=== PATIENT | female | born 1995 | race African-American/Black ===

== ENCOUNTER 2024-01-25 15:42 | Inpatient (IN) | payer SELFPAY ==
[~2024-01-25] VITALS: Ht 160 cm; Wt 81.7 kg
[2024-01-25] MEDS ORDERED: BIRTH CONTROL (16:12)
[2024-01-25] MEDS ORDERED: SODIUM CHLORIDE 0.9% 1000ML 1,000 ML ONE ×2 (16:26→17:42)
[2024-01-25] MEDS ORDERED: LORAZEPAM INJ 2 MG/ML VIAL ONE (16:27)
[2024-01-25] MEDS ORDERED: FAMOTIDINE 20 MG/2 ML VIAL IV ONE (16:27)
[2024-01-25] MEDS: SODIUM CHLORIDE 0.9% 1000ML 1,000 ML IV ONE (16:34)
[2024-01-25] MEDS: FAMOTIDINE 20 MG/2 ML VIAL IV STA (16:34)
[2024-01-25] MEDS: LORAZEPAM INJ 2 MG/ML VIAL IV ONE (16:35)
[2024-01-25] MEDS ORDERED: ACETAMINOPHEN 325 MG TAB PO PRN (17:45)
[2024-01-25] MEDS ORDERED: ONDANSETRON HCL INJ 2MG/ML 2ML 2 MG/ML VIAL IV PRN (17:45)
[2024-01-25] MEDS: SODIUM CHLORIDE 0.9% 1000ML 1,000 ML IV SCH (17:50)
[2024-01-25 20:00] VITALS: BP 131/101; PULSE 89; RESP 18; TEMP 98.6; O2SAT 100
[2024-01-25] MEDS: ONDANSETRON HCL INJ 2MG/ML 2ML 2 MG/ML VIAL IV PRN (20:45)
[2024-01-25] MEDS: MELATONIN 3 MG TAB PO SCH (20:46)
[2024-01-26] VITALS (13 sets, daily range): BP systolic 124–144; BP diastolic 81–97; PULSE 64–86; RESP 17–20; TEMP 97.9–98.6; O2SAT 98–100
[2024-01-26 07:09] LABS: BASOPHILS # (AUTO) 0.1 (0.0-0.1); BASOPHILS % 1.3 % (0.0-1.0); EOSINOPHILS # (AUTO) 0.3 (0.0-0.4); EOSINOPHILS % 6.8 % (0.0-6.0); HEMATOCRIT 43.5 % (34.2-44.1); HEMOGLOBIN 13.7 g/dL (12.0-16.0); LYMPHOCYTES # (AUTO) 1.4 (1.0-3.2); LYMPHOCYTES % 28.9 % (18.0-39.1); MEAN CORPUSCULAR HEMOGLOBIN 32.3 pg (28-32); MEAN CORPUSCULAR HGB CONC 31.5 g/dL (31-35); MEAN CORPUSCULAR VOLUME 102.6 fL (81-99); MONOCYTES # (AUTO) 0.4 (0.2-0.8); MONOCYTES % 8.3 % (4.4-11.3); NEUTROPHILS # (AUTO) 2.6 (2.1-6.9); NEUTROPHILS % 54.5 % (38.7-80.0); PLATELET COUNT 264 x10e3/uL (140-360); RED BLOOD COUNT 4.24 x10e6/uL (3.6-5.1); RED CELL DISTRIBUTION WIDTH 12.5 % (11.7-14.4)
[2024-01-26 07:27] LABS: ALBUMIN 3.3 g/dL (3.5-5.0); ALBUMIN/GLOBULIN RATIO 1.2 (0.8-2.0); ANION GAP 12.5 mmol/L (8-16); BILIRUBIN,TOTAL 0.9 mg/dL (0.2-1.2); CREATININE, SERUM 0.88 mg/dL (0.57-1.11); POTASSIUM 3.5 mmol/L (3.5-5.1); TOTAL PROTEIN 6.1 g/dL (6.5-8.1)
[2024-01-26 07:55] LABS: MAGNESIUM 1.7 MG/DL (1.3-2.1); PHOSPHORUS 3.8 MG/DL (2.3-4.7)
[2024-01-26] MEDS: LORAZEPAM INJ 2 MG/ML VIAL IV PRN (08:11)
[2024-01-26] MEDS: FOLIC ACID 1 MG TAB PO SCH (08:22)
[2024-01-26] MEDS ORDERED: THIAMINE HCL INJ 100 MG/ML 2ML VIAL IV SCH (09:00)
[2024-01-27 06:01] VITALS: BP 132/93; PULSE 71; RESP 17; TEMP 98.1; O2SAT 100
[2024-01-27 06:35] LABS: ALBUMIN 3.2 g/dL (3.5-5.0); ANION GAP 13.2 mmol/L (8-16); BILIRUBIN,TOTAL 1.2 mg/dL (0.2-1.2); CALCIUM 7.9 mg/dL (8.4-10.2); CREATININE, SERUM 0.83 mg/dL (0.57-1.11); TOTAL PROTEIN 6.3 g/dL (6.5-8.1)
[2024-01-27 06:37] LABS: POTASSIUM 3.2 mmol/L (3.5-5.1)
[2024-01-27 09:49] VITALS: BP 151/87; PULSE 63; RESP 18; TEMP 98.3; O2SAT 99
[2024-01-27 09:58] VITALS: BP 151/87; PULSE 63; RESP 18; TEMP 98.3; O2SAT 99
[2024-01-27 09:59] VITALS: BP 151/87; PULSE 63; RESP 18; TEMP 98.3; O2SAT 99
[2024-01-27 12:51] VITALS: BP 119/84; PULSE 79; RESP 18; TEMP 98; O2SAT 100
[2024-01-27] MEDS: POTASSIUM CHLORIDE 20 MEQ TAB CR PO ONE (13:47)
[2024-01-27 16:44] VITALS: BP 129/95; PULSE 81; RESP 18; TEMP 98.6; O2SAT 100
[2024-01-27] MEDS ORDERED: FOLIC ACID0.4 MG PO (18:51)
[2024-01-27] MEDS ORDERED: THIAMINE H100 MG/1 M IV (18:51)
[2024-01-27] MEDS ORDERED: VITAMIN B-1100 M1 PO (18:57)
[2024-01-27] MEDS ORDERED: VITAMIN B-1100 MG PO (20:45)
== END 2024-01-27 19:00 | disposition home or self-care (01) | DRG 897 ==
LOC: FSED 15:44 → ERHOLD 17:00 → MED/SURG2 18:49
PROVIDERS: ADMIT Internal Medicine; ATTEND Internal Medicine
DX: F10.130 Alcohol abuse with withdrawal, uncomplicated (principal); E66.9 Obesity, unspecified; Z68.31 Body mass index [BMI] 31.0-31.9, adult; Z91.018 Allergy to other foods
CPT/HCPCS: 0223U; 36415; 80053; 80307; 81003; 81025; 83690; 83735; 84100; 85025; 96374; 96375; 99284; J2060; J2405; J3411; J7030

== ENCOUNTER 2024-07-24 21:38 | Emergency (ER) | payer SELFPAY ==
[~2024-07-24] VITALS: Ht 160 cm; Wt 81.6 kg
[~2024-07-24 21:38] MED LIST: BIRTH CONTROL; FOLIC ACID0.4 MG PO; THIAMINE H100 MG/1 M IV; VITAMIN B-1100 M1 PO; VITAMIN B-1100 MG PO
[2024-07-24 22:07] VITALS: RESP 18; TEMP 98.4
[2024-07-24 22:34] LABS: BASOPHILS # (AUTO) 0.1 (0.0-0.1); BASOPHILS % 1.7 % (0.0-1.0); EOSINOPHILS # (AUTO) 0.2 (0.0-0.4); EOSINOPHILS % 3.9 % (0.0-6.0); HEMATOCRIT 37.7 % (34.2-44.1); LYMPHOCYTES # (AUTO) 1.4 (1.0-3.2); LYMPHOCYTES % 33.3 % (18.0-39.1); MEAN CORPUSCULAR HEMOGLOBIN 37.7 pg (28-32); MEAN CORPUSCULAR HGB CONC 34.5 g/dL (31-35); MEAN CORPUSCULAR VOLUME 109.3 fL (81-99); MONOCYTES # (AUTO) 0.3 (0.2-0.8); MONOCYTES % 8.1 % (4.4-11.3); NEUTROPHILS # (AUTO) 2.1 (2.1-6.9); NEUTROPHILS % 52.8 % (38.7-80.0); PLATELET COUNT 89 x10e3/uL (140-360); RED BLOOD COUNT 3.45 x10e6/uL (3.6-5.1); RED CELL DISTRIBUTION WIDTH 13.2 % (11.7-14.4); WHITE BLOOD COUNT 4.06 x10e3/uL (4.8-10.8)
[2024-07-24 22:46] LABS: AMPHETAMINES SCREEN,URINE NEGATIVE (NEGATIVE); BENZODIAZEPINES SCREEN,URINE NEGATIVE (NEGATIVE); BILIRUBIN,URINE 1+ (NEGATIVE); CLARITY,URINE CLOUDY (CLEAR); COLOR,URINE YELLOW (YELLOW); GLUCOSE, URINE NEGATIVE (NEGATIVE); KETONES,URINE 1+ (NEGATIVE); LEUKOCYTE ESTERASE ,URINE NEGATIVE (NEGATIVE); NITRITE,URINE NEGATIVE (NEGATIVE); OPIATES SCREEN,URINE NEGATIVE (NEGATIVE); PH,URINE 5.5 (5 - 7); PHENCYCLIDINE SCREEN,URINE NEGATIVE (NEGATIVE); PREGNANCY TEST, URINE NEGATIVE (NEGATIVE); PROTEIN,URINE DIPSTICK TRACE (NEGATIVE); URINE UROBILINOGEN 0.2 mg/dL (0.2 - 1)
[2024-07-24 22:47] LABS: CANNABINOIDS SCREEN,URINE NEGATIVE (NEGATIVE); METHADONE SCREEN, URINE NEGATIVE (NEGATIVE)
[2024-07-24 22:51] LABS: BACTERIA,URINE MANY /HPF; EPITHELIAL CELLS,URINE MODERATE /LPF; YEAST,URINE FEW
[2024-07-24 22:52] LABS: ALANINE AMINOTRANSFERASE 168 IU/L (0-55); ALBUMIN/GLOBULIN RATIO 1.1 (0.8-2.0); ALKALINE PHOSPHATASE 69 IU/L (40-150); BILIRUBIN,TOTAL 1.3 mg/dL (0.2-1.2); BLOOD UREA NITROGEN < 5 mg/dL (7-26); BUN/CREATININE RATIO 5 (6-25); CALCIUM 9.1 mg/dL (8.4-10.2); CARBON DIOXIDE 18 mmol/L (22-29); CHLORIDE 100 mmol/L (98-107); CREATININE, SERUM 0.98 mg/dL (0.57-1.11); EST GLOMERULAR FILTRATION RATE 81 ML/MIN (>=60); GLUCOSE 105 mg/dL (74-118); SODIUM 135 mmol/L (136-145); TOTAL PROTEIN 7.5 g/dL (6.5-8.1)
[2024-07-24] MEDS ORDERED: IOPAMIDOL 370 MG/ML 100 ML INFUS..BTL INJ ONE (23:19)
[2024-07-25] MEDS ORDERED: FAMOTIDINE 20 MG/2 ML VIAL IV ONE (00:21)
[2024-07-25] MEDS: FAMOTIDINE 20 MG/2 ML VIAL IV STA (00:28)
[2024-07-25] MEDS: ONDANSETRON HCL INJ 2MG/ML 2ML 2 MG/ML VIAL IV STA (00:28)
[2024-07-25] MEDS: SODIUM CHLORIDE 0.9% 1000ML 1,000 ML IV STA (00:28)
[2024-07-25] MEDS ORDERED: PANTOPRAZOLE SO40 MG PO (02:45)
[2024-07-25] MEDS ORDERED: CHLORDIAZEPOXID25 MG PO (02:48)
[2024-07-25 03:01] VITALS: PULSE 96; O2SAT 98
[2024-07-25] MEDS ORDERED: ONDANSETRON ODT4 MG SL (18:15)
== END 2024-07-25 03:10 | disposition home or self-care (01) ==
LOC: ER 21:42
DX: R10.13 Epigastric pain (principal); F10.10 Alcohol abuse, uncomplicated; K29.20 Alcoholic gastritis without bleeding; R11.2 Nausea with vomiting, unspecified; K76.0 Fatty (change of) liver, not elsewhere classified; R51.9 Headache, unspecified; Z11.52 Encounter for screening for COVID-19
CPT/HCPCS: 36415; 74176; 80053; 80307; 80320; 81001; 81025; 83690; 85025; 87400; 99284; J2405; J7030; Q9967; U0002

== ENCOUNTER 2024-07-25 16:25 | Emergency (ER) | payer SELFPAY ==
[~2024-07-25] VITALS: Ht 160 cm; Wt 72.6 kg
[~2024-07-25 16:25] MED LIST changes: +CHLORDIAZEPOXID25 MG PO; +PANTOPRAZOLE SO40 MG PO
[2024-07-25 17:14] VITALS: PULSE 96; RESP 15; TEMP 98.3
[2024-07-25] MEDS: SODIUM CHLORIDE 0.9% 1000ML 1,000 ML IV STA (17:55)
[2024-07-25] MEDS ORDERED: ONDANSETRON ODT4 MG SL (18:15)
[2024-07-25] MEDS: ONDANSETRON HCL INJ 2MG/ML 2ML 2 MG/ML VIAL IV PRN (18:48)
[2024-07-25] MEDS: CHLORDIAZEPOXIDE HCL 25 MG CAP PO ONE (19:04)
[2024-07-25 20:06] VITALS: BP 143/94; PULSE 92; RESP 16; TEMP 98.5; O2SAT 100
== END 2024-07-25 20:05 | disposition home or self-care (01) ==
LOC: ER 16:40
DX: F10.10 Alcohol abuse, uncomplicated (principal); K29.20 Alcoholic gastritis without bleeding; R11.2 Nausea with vomiting, unspecified; R10.13 Epigastric pain; K76.0 Fatty (change of) liver, not elsewhere classified
CPT/HCPCS: 99284; J2405; J7030